=== PATIENT | female | born 2005 | race Caucasian/White ===

== ENCOUNTER 2024-01-02 21:51 | Emergency (ER) | payer MEDICAID, SELFPAY ==
[2024-01-02 21:52] VITALS: BP 111/72; PULSE 105; RESP 18; TEMP 37.1; O2SAT 100; BMI 35.4
--- NOTE | 2024-01-02 22:44 | EX.ED.DYSGE1 ---
HPI History of Present Illness Chief Complaint: General Illness Informant: patient Narrative Narrative: Patient is a 18-year-old female with no significant past medical history. She reports 3 to 4 days of sore throat with mild nasal congestion. She was seen in urgent care the other day and tested for strep and mono which were negative. Despite the negative test the patient's had persistent symptoms and therefore she was brought into the ER for repeat evaluation [facility] Medical History no medical history Home Medications ?Medication ?Instructions ?Recorded ?Last Taken ?Type NK 01/02/24 Unknown History prednisone 20 mg tablet 40 mg (2 x 20 mg) PO DAILY 5 days 01/02/24 Unknown Rx #10 tabs Allergy/AdvReac Type Severity Reaction Status Date / Time amoxicillin Allergy Mild Hives Verified 01/02/24 21:55 cefdinir (From Omnicef) Allergy Mild Rash Verified 01/02/24 21:55 Social History Smoking Status: Current every day smoker tobacco type: e-cigarettes ROS ROS ED Constitutional Constitutional ED: Reports chills, fever(s) and subjective Eyes Eyes: Denies change in vision or diplopia ENT ENT ED: Reports rhinorrhea and sore throat Cardiovascular Cardiovascular: Denies chest pain Respiratory/Chest Respiratory/Chest: Denies cough or dyspnea Gastrointestinal Gastrointestinal: Reports nausea; Denies abdominal pain, diarrhea or vomiting Genitourinary Genitourinary ED: Denies dysuria Musculoskeletal Musculoskeletal: Reports myalgias Integumentary Denies rash Neurologic Neurologic: Reports headache(s) Hematologic/Lymphatic Hematologic/Lymphatic: Denies easy bleeding or easy bruising Allergic/Immunologic Allergic/Immunologic ED: Denies mouth swelling or tongue swelling EXAM Physical Exam Const Vital Signs: 01/02/24 21:52 01/02/24 22:31 01/02/24 23:06 Temperature 98.8 F 98.3 F Temperature Source Oral Pulse Rate 105 H 95 Respiratory Rate 18 16 Respiratory Effort Normal Respiratory Pattern Normal Blood Pressure 111/72 110/62 Blood Pressure Mean 85 78 Pulse Ox 100 97 Oxygen Delivery Method Room Air Positive well nourished and well developed General Appearance ED: well developed; Negative for pallor HEENT Reports moist mucous membranes HEENT Narrative: There is diffuse erythema in the posterior pharynx with mild/+1 tonsil hypertrophy. No exudates trismus hard palate petechiae or difficulty with secretions. No change in voice. No obvious abscess formation Eyes PERRL and EOMs intact bilaterally General Eye ED: Negative for scleral icterus Neck supple Neck Narrative: Tender right-sided anterior cervical lymphadenopathy noted without overlying erythema or warmth No nuchal rigidity or meningeal signs Resp normal respiratory effort and clear to auscultation bilaterally Cardio regular rate and regular rhythm Extremity normal to inspection Neuro oriented x3, CN's II-XII intact bilaterally and no sensory deficits noted Sensorium / Orientation: alert Motor Exam: strength 5/5 throughout Psych mental status grossly normal Skin no rashes or lesions noted, no wounds and skin turgor normal General Skin Exam: Negative for jaundice or pallor MDM MDM MDM Narrative Medical decision making narrative: Patient arrived to ER with stable vitals. She reported 3 to 4 days of mild congestion with sore throat. She is already been tested for strep and mono which were negative. Differential diagnosis is for viral pharyngitis versus upper respiratory tract infection versus peritonsillar abscess. Patient does not have any meningeal signs. There is no obvious findings to suggest an infected or necrotic lymph node. Physical exam is most consistent with viral pharyngitis and as she does not have difficulty with secretions or change in voice I have low concern for epiglottitis and physical exam does not show any findings concerning for low a peritonsillar abscess therefore there is no need for imaging studies. Patient replaced on prednisone to reduce inflammation but is overall vitals are stable and exam reveals changes most consistent with viral illness without systemic infection she is otherwise safe for discharge History & Record Review Discussion w/independent historian: Patient Discharge Plan Triage Chief Complaint: General Illness ED Provider: Da Zheng Dx/Rx/DC Orders Clinical Impression: Acute viral pharyngitis, Lymphadenopathy Instructions: Self-Care for Sore Throats, Lymphadenopathy, ED Pharyngitis, Viral Prescriptions: New prednisone 20 mg tablet 40 mg PO DAILY 5 Days Qty: 10 0RF No Action NK Primary Care Provider: Care Physician,No Primary Referrals: Yfn German MD [Med Staff - Active Staff] - Care Physician,No Primary [Primary Care Provider] - Activity Restrictions/Additional Instructions: Please continue with Tylenol and/or Motrin as well as salt water gargles for pain control. Use the steroid as directed to control any inflammatory process and return to the ER should you have any further concerns Print Language: Uzbek Disposition Disposition: Home, Self Care Discharge Date/Time: 01/02/24 23:28
[2024-01-02] MEDS: Acetaminophen 500 MG Tablet 1000 MG PO (22:50)
[2024-01-02] MEDS: dexAMETHasone 10 MG/ML Vial PO.IVFORM (22:50)
[2024-01-02 23:06] VITALS: BP 110/62; PULSE 95; RESP 16; TEMP 36.8; O2SAT 97
== END 2024-01-02 23:28 | disposition home or self-care (01) ==
LOC: ED 23:06
PROVIDERS: Emergency Provider Emergency Medicine; Visit Provider Emergency Medicine
DX: J02.8 Acute pharyngitis due to other specified organisms (principal); B97.89 Other viral agents as the cause of diseases classified elsewhere; F17.290 Nicotine dependence, other tobacco product, uncomplicated; R59.9 Enlarged lymph nodes, unspecified; R51.9 Headache, unspecified
CPT/HCPCS: 99284

== ENCOUNTER 2024-12-08 20:23 | Emergency (ER) | payer MEDICAID, SELFPAY ==
[2024-12-08 20:27] VITALS: BP 113/80; PULSE 86; RESP 18; TEMP 36.4; O2SAT 99; BMI 37.2
[2024-12-08 21:04] LABS: Bacteria 0 SEEN /hpf (None Seen); Mucous, Urine 0 SEEN /hpf (<or=2+)
[2024-12-08 21:08] LABS: Color, Urine Yellow (Yellow); Glucose, Dipstick Normal (Normal); Ketone-Dipstick Negative (Negative); Leukocyte Esterase-Dipstick 25 /ul (Negative); Nitrite-Dipstick Negative (Negative); Occult Blood-Urine Negative /ul (Negative); Urine Bilirubin Dipstick Negative (Negative); Urine Clarity Clear (Clear); Urine Urobilinogen Normal (Normal)
[2024-12-08] MEDS: 0.9% Normal Saline (1000mL) 1,000 ML 999 ML IV (21:08)
--- NOTE | 2024-12-08 21:11 | CT_ITS ---
PROCEDURE: ABDOMEN/PELVIS W IV CONT ONLY 12/08/2024 REASON FOR EXAM: RLQ PAIN TECHNIQUE: Abdomen and pelvis CT with intravenous contrast. Coronal and Sagittal reconstruction series were provided. PATIENT PREPARATION: Per protocol ORAL CONTRAST TYPE: None. AMOUNT: mL One or more dose reduction techniques were used (e.g., Automated exposure control, adjustment of the mA and/or kV according to patient size, use of iterative reconstruction technique. FINDINGS: Lung bases: Lung bases are clear. Liver: Normal size. No mass. Gallbladder: Contracted gallbladder. Spleen: Normal size. Pancreas: Normal size without evidence of mass surrounding inflammation or ductal dilation. Adrenals: Unremarkable. Kidneys: Normal renal sizes. No hydronephrosis. Bladder: Unremarkable. Reproductive Organs: Unremarkable. Bowel: No bowel obstruction. Appendix: Unremarkable. Lymph nodes: Unremarkable. Vasculature: The abdominal aorta and IVC are normal. Peritoneum / Retroperitoneum: Unremarkable. Bones: Unremarkable. CT/Abdomen/Pelvis W IV Cont ONLY IMPRESSION: NORMAL CT ABDOMEN AND PELVIS WITH CONTRAST. Reading Location: [id number]
--- NOTE | 2024-12-08 21:13 | EX.ED.DYSGE1 ---
HPI History of Present Illness Chief Complaint: Abd Pain Narrative Narrative: Patient is a 19-year-old female with no known significant past medical history who presented to the emergency department chief complaint of abdominal pain. Patient states that when she woke up this morning she noted that she had abdominal pain in the lower portion of her abdomen. States that it is mainly on the right side and notes that when she tries to walk this is significantly worse. Patient denies any possibility of and states that she is on control. Patient denies any previous abdominal surgeries and denies any recent sick contacts. Patient states that when she is lying and resting her abdominal pain is a 3 out of 10. PFSH PFSH Medical History no medical history Home Medications ?Medication ?Instructions ?Recorded ?Last Taken ?Type prednisone 20 mg tablet 40 mg (2 x 20 mg) PO DAILY 5 days 01/02/24 Unknown Rx #10 tabs dicyclomine 20 mg tablet 20 mg PO TID PRN abdominal pain 12/08/24 Unknown Rx #20 tabs ondansetron 4 mg disintegrating 4 mg PO Q6H PRN nausea and 12/08/24 Unknown Rx tablet vomiting #20 tabs Allergy/AdvReac Type Severity Reaction Status Date / Time amoxicillin Allergy Mild Hives Verified 12/08/24 20:26 cefdinir (From Omnicef) Allergy Mild Rash Verified 12/08/24 20:26 Social History Smoking Status: Current every day smoker tobacco type: e-cigarettes ROS ROS ED ROS Narrative Constitutional: Denies fevers, chills, headaches, lightness, dizziness Eyes: Denies change in vision double vision blurry vision Cardiovascular: Denies chest pain or palpitations Respiratory: Denies coughing wheezing shortness of breath Abdomen: Complains of abdominal pain as noted above denies nausea vomit diarrhea : Denies any urinary symptoms Neurological: Denies numbness, disc of tingling Musculoskeletal: Denies back pain Skin: Denies rashes or lesions EXAM Physical Exam Narrative Exam Narrative: General: Patient lying in bed rest comfortably did not appear to be acute distress Head: Atraumatic, normocephalic Eyes: PERRL bilaterally, EOMI bilaterally, no conjunctival injection noted Neck: Soft, supple, trachea midline Cardiovascular: Regular rate and rhythm Respiratory: Clear to auscultation bilaterally Abdomen: Soft, nondistended, tenderness to palpation in the right lower quadrant some suprapubic tenderness on exam as well no rebound or guarding on exam Extremities: +5/5 strength noted in the bilateral upper and lower extremities Neurological: Patient follow commands knew that she was at [facility] year is 2024 Skin: Warm, dry, intact no rashes or lesions noted Const Vital Signs: 12/08/24 20:27 Temperature 97.6 F L Temperature Source Temporal Pulse Rate 86 Respiratory Rate 18 Blood Pressure 113/80 Blood Pressure Mean 91 Pulse Ox 99 Oxygen Delivery Method Room Air MDM MDM MDM Narrative Medical decision making narrative: Patient is a 19-year-old female who presented to the emergency department the chief complaint of abdominal pain. On the differential diagnose includes but not limited to ectopic , UTI, ovarian cyst, appendicitis. Once workup is obtained reviewed she will be reevaluated. Patient states that she does not need anything for pain at this point time. Patient CBC was reviewed showed no evidence leukocytosis white blood count 8.1, he was 13.4, platelet count was noted be 279. Patient sodium was 136, potassium normal 3.8, creatinine normal at 0.76. Patient AST and ALT are 25 and 31 respectively, lipase normal at 23. Patient's is negative, urinalysis reviewed and showed no evidence of infection. Patient CT ab pelvis with IV contrast was reviewed and showed no acute findings noted. I reevaluated patient and she would like to go home at this point in time she is feeling better. Patient will be given prescriptions for Bentyl and Zofran. She is advised to follow-up with her primary care physician outpatient setting return with worsening symptoms or concerns. She is agreeable this plan as well as significant other at bedside all question concerns answered she was discharged home in stable condition. Lab Data Labs: Laboratory Results - last 24 hr 12/08/24 12/08/24 20:40 21:10 WBC 8.1 RBC 4.13 L Hgb 13.4 Hct 36.6 L MCV 88.6 MCH 32.4 H MCHC 36.6 H RDW Std Deviation 41.6 RDW Coeff of Lexi 12.7 Plt Count 279 MPV 10.4 Immature Gran % (Auto) 0.200 Neut % (Auto) 63.0 Lymph % (Auto) 28.5 [place] % (Auto) 7.3 Eos % (Auto) 0.6 Baso % (Auto) 0.4 Absolute Neuts (auto) 5.1 Absolute Lymphs (auto) 2.30 Nucleated RBC % 0 Sodium 136 Potassium 3.8 Chloride 102 Carbon Dioxide 23.5 Anion Gap 11 BUN 18 Creatinine 0.76 Estim Creat Clear Calc 120.09 Est GFR (MDRD) Non-Af 114 BUN/Creatinine Ratio 23.9 H Glucose 85 Calcium 9.0 Total Bilirubin 0.21 AST 25 ALT 31 Alkaline Phosphatase 74 Total Protein 7.3 Albumin 4.2 Globulin 3.1 Albumin/Globulin Ratio 1.4 Lipase 23 Serum , Qual NEGATIVE Urine Color Yellow Urine Clarity Clear Urine pH 6.0 Ur Specific Rush 1.020 Urine Protein TNP Urine Glucose (UA) Normal Urine Ketones Negative Urine Occult Blood Negative Urine Nitrite Negative Urine Bilirubin Negative Urine Urobilinogen Normal Ur Leukocyte Esterase 25 H Urine RBC 0-5 SEEN Urine WBC 5-10 SEEN Ur Squamous Epith Cells 0-5 SEEN Urine Bacteria 0 SEEN Urine Mucus 0 SEEN U Random Total Protein 20.5 H Radiography Diagnostic Testing: Clinical Impression(s) from Imaging Studies Abdomen/Pelvis CT 12/08/24 21:11 IMPRESSION: NORMAL CT ABDOMEN AND PELVIS WITH CONTRAST. Reading Location: [id number] Discharge Plan Triage Chief Complaint: Abd Pain ED Provider: Tavares Rowell Dx/Rx/DC Orders Clinical Impression: Abdominal pain Prescriptions: New dicyclomine 20 mg tablet 20 mg PO TID PRN (Reason: abdominal pain) Qty: 20 0RF ondansetron 4 mg tablet,disintegrating 4 mg PO Q6H PRN (Reason: nausea and vomiting) Qty: 20 0RF No Action prednisone 20 mg tablet 40 mg PO DAILY 5 Days Qty: 10 0RF Primary Care Provider: Care Physician,No Primary Referrals: Care Physician,No Primary [Primary Care Provider] - Iesha Begum, INFORMATION TECHNOLOGY CONSULTANT-C [facility] [place] - Activity Restrictions/Additional Instructions: Take prescriptions as prescribed. Your CT of your abdomen did not show any acute findings your blood work here today was largely normal did not show any acute findings. Return with worsening symptoms or other concerns. You were referred to a primary care physician to follow-up with as well. Print Language: Syriac Disposition Disposition: Home, Self Care
[2024-12-08 21:16] LABS: Squamous Epithelial Cells - UA 0-5 SEEN /hpf (5-10); White Blood Cells 5-10 SEEN /hpf (0-5)
[2024-12-08 21:17] LABS: Red Blood Cells-Urine 0-5 SEEN /hpf (0-5)
[2024-12-08 21:19] LABS: Absolute Neutrophil Count 5.1 X10^3/uL (2.0-7.7); Basophil# 0.03 X10^3/uL; Basophil% 0.4 % (0-1); Eosinophil# 0.05 X10^3/uL; Eosinophils% 0.6 % (0-5); Hematocrit 36.6 % (37-47); Hemoglobin 13.4 g/dL (12.0-15.0); Lymphocyte % 28.5 % (19-41); Mean Corp Hgb Conc 36.6 g/dL (32-36); Mean Corpuscular Hgb 32.4 pg (27.0-32.0); Mean Corpuscular Volume 88.6 fL (81-99); Mean Platelet Vol. 10.4 fl (6.2-12.0); Monocyte# 0.59 X10^3/uL; Monocyte% 7.3 % (0-10); NRBC Flagged by Analyzer 0 % (0-5); Neutrophil # 5.09 X10^3/uL (2.7-7.7); Platelet Count 279 K/mm3 (150-450); RBC Distribution Width CV 12.7 % (11.6-14.6); RBC Distribution Width SD 41.6 fl (35.1-43.9); Red Blood Count 4.13 M/mm3 (4.2-5.4); White Blood Count 8.1 K/mm3 (4.4-11.0)
[2024-12-08 21:34] LABS: Internal QC Validated? YES +Cl - CLEAR BKGD; Pregnancy, Serum, hCG Quali. NEGATIVE Negative
[2024-12-08 21:37] LABS: Protein, Urine (Random) 20.5 mg/dL (0.0-12.0)
[2024-12-08 21:42] LABS: ALB/GLOB Ratio 1.4 RATIO (0.9-2.4); AST(SGOT) 25 U/L (<=31); Alanine Aminotransfer ALT/SGPT 31 U/L (<=34); Albumin, Serum 4.2 g/dL (3.5-5.0); Alkaline Phosphatase 74 U/L (35-104); Anion Gap 11 (5-15); BUN 18 mg/dL (4-19); BUN/Creat Ratio 23.9 RATIO (10-20); Carbon Dioxide 23.5 mmol/L (21.0-32.0); Chloride 102 mmol/L (98-108); Creatinine, Serum 0.76 mg/dL (0.70-1.20); EST Glomerular Filtration Rate 114 (>60); Estimated Creatinine Clearance 120.09 ml/min (50-250); Globulin 3.1 g/dL (2.2-4.2); Glucose 85 mg/dL (70-99); Lipase 23 U/L (13-75); Potassium 3.8 mmol/L (3.3-5.1); Protein, Total 7.3 g/dL (5.9-8.4); Sodium Level 136 mmol/L (133-145); Total Bilirubin 0.21 mg/dL (0.00-1.30)
[2024-12-08 22:52] VITALS: BP 112/78; PULSE 72; RESP 16; TEMP 36.8; O2SAT 100
== END 2024-12-08 22:53 | disposition home or self-care (01) ==
PROVIDERS: Emergency Provider Emergency Medicine; Referring Provider Emergency Medicine; Visit Provider Emergency Medicine
DX: R10.9 Unspecified abdominal pain (principal); F17.290 Nicotine dependence, other tobacco product, uncomplicated
CPT/HCPCS: 74177; 80053; 81001; 83690; 84156; 84703; 85025; 96360; 96361; 99282; Q9967; A4216